=== PATIENT | male | born 1965 ===

== ENCOUNTER 2024-02-20 13:03 | Emergency (ER) | payer OTHER ==
[2024-02-20 13:58] LABS: Troponin I Less than 0.010 ng/mL (< 0.028)
[2024-02-20 13:59] LABS: ALT (SGPT) 33 U/L (8-55); AST (SGOT) 30 U/L (5-34); Albumin 4.3 g/dL (3.5-5.0); Alkaline Phosphatase 63 U/L (40-110); Anion Gap 16 mmol/L (10-20); BUN (Urea Nitrogen) 18 mg/dL (8.4-25.7); Bilirubin, Total 1.1 mg/dL (0.2-1.2); Calc. Creatinine Clearance 0 mL/min (70-130); Calcium 9.7 mg/dL (7.8-10.44); Carbon Dioxide 20 mmol/L (22-29); Chloride 103 mmol/L (98-107); Estimated GFR 74; Globulin 3.4 g/dL (2.4-3.5); Glucose 111 mg/dL (70-105); Potassium 3.7 mmol/L (3.5-5.1); Protein, Total 7.7 g/dL (6.0-8.3); Sodium 135 mmol/L (136-145)
[2024-02-20 14:05] LABS: #Basophils 0.06 10x3/uL (0.0-0.2); #Eosinophils 0.09 10x3/uL (0.0-0.5); #Monocytes 0.63 10x3/uL (0.0-1.1); #Neutrophils 5.34 10x3/uL (1.5-8.4); %Basophils 0.7 % (0.0-2.0); %Eosinophils 1.1 % (0.0-6.0); %Lymphocytes 25.2 % (18.0-47.0); %Monocytes 7.7 % (0.0-10.0); %Neutrophils 65.1 % (40.0-75.0); Hematocrit 48.7 % (38.8-50.0); Hemoglobin 17.9 g/dL (13.5-17.5); Mean Corpuscular HGB CONC 36.8 g/dL (32.0-36.0); Mean Corpuscular Hemoglobin 31.2 pg (27.0-33.0); Platelet Count 218 10x3/uL (150-450); RBC Distribution Width 12.2 % (11.5-14.5); Red Blood Cell (RBC) Count 5.73 10x6/uL (4.32-5.72); White Blood Cell (WBC) Count 8.2 10x3/uL (3.5-10.5)
== END 2024-02-20 15:29 | disposition home or self-care (01) ==
LOC: CSHERS 13:03
DX: R07.89 Other chest pain (principal); F41.9 Anxiety disorder, unspecified; K21.9 Gastro-esophageal reflux disease without esophagitis
CPT/HCPCS: 71045; 80053; 84484; 85025; 93005